=== PATIENT | male | born 1975 | race Caucasian/White ===

== ENCOUNTER 2016-09-27 23:44 | Emergency (ER) | payer OTHER ==
[~2016-09-27] VITALS: Ht 187.9 cm; Wt 90.7 kg
[~2016-09-27 23:44] MED LIST: ANAPROX DS550 MG PO; CYCLOBENZAPRINE10 MG PO; DAYPRO600 M1 PO; FLEXERIL5 MG PO; LISINOPRIL10 M1 PO; MOTRIN800 MG PO; Motrin,Rufen800 MG PO; NORCO 10-325 T1 EACH PO; PREDNISONE20 MG PO; TAMIFLU75 MG PO; TRAMADOL HCL50 MG PO
[2016-09-27] MEDS ORDERED: ZOLOFT25 MG PO (23:53)
[2016-09-27] MEDS ORDERED: ABILIFY5 MG PO (23:53)
[2016-09-27] MEDS ORDERED: XANAX0.25 MG PO (23:53)
[2016-09-28 00:26] LABS: BASO # 0.1 10*3/uL (0.0-0.1); BASO % 0.5 % (0.0-1.0); EOS # 0.4 10*3/uL (0.0-0.4); EOS % 3.6 % (1.0-4.0); HEMATOCRIT 43.4 % (42.0-52.0); HEMOGLOBIN 14.9 g/dl (14.0-18.0); LYMPH # 2.8 10*3/uL (1.3-4.4); LYMPH % 28.4 % (27.0-41.0); MEAN CELL VOLUME 93.9 fl (80.0-94.0); MEAN CORPUSCULAR HGB 32.3 pg (27.0-31.0); MEAN CORPUSCULAR HGB CONC 34.3 g/dl (33.0-37.0); MEAN PLATELET VOLUME 9.3 fl (9.6-12.3); MONO # 0.8 10*3/uL (0.1-1.0); MONO % 8.2 % (3.0-9.0); NEUT # 5.9 10*3/uL (2.3-7.9); NEUT % 59.1 % (47.0-73.0); PLATELET COUNT AUTOMATED 254 10*3/uL (130-400); RED BLOOD COUNT 4.62 10*6/uL (4.50-5.90); RED CELL DISTRI WIDTH 12.7 % (0-14.5); WHITE BLOOD COUNT 9.9 10*3/uL (4.8-10.8)
[2016-09-28 00:41] LABS: ALBUMIN 3.5 gm/dl (3.1-4.5); ALKALINE PHOSPHATASE 76 U/L (45-117); BILIRUBIN, TOTAL 0.5 mg/dl (0.2-1.0); BUN 20 mg/dl (7-24); CARBON DIOXIDE 30 mmol/L (21-32); CHLORIDE 105 mmol/L (98-107); EST GLOM FILT AFRICAN AMERICAN > 60 ml/min; GLUCOSE 97 mg/dL (65-99); POTASSIUM 3.6 mmol/L (3.5-5.1); SGOT/AST 23 IU/L (3-35); SGPT/ALT 74 U/L (12-78); SODIUM 142 mmol/L (136-145); TOTAL PROTEIN 6.6 gm/dL (6.4-8.2)
[2016-09-28] MEDS ORDERED: LOMOTIL 0.025 M1 TA1 PO (01:43)
== END 2016-09-28 02:20 | disposition home or self-care (01) ==
LOC: ED 23:44
PROVIDERS: Physician Assistant
DX: A08.4 Viral intestinal infection, unspecified (principal); Z88.0 Allergy status to penicillin; Z88.1 Allergy status to other antibiotic agents; Z79.899 Other long term (current) drug therapy

== ENCOUNTER 2016-12-26 19:47 | Emergency (ER) | payer OTHER ==
[~2016-12-26] VITALS: Ht 187.9 cm; Wt 90.7 kg
[~2016-12-26 19:47] MED LIST changes: +ABILIFY5 MG PO; +LOMOTIL 0.025 M1 TA1 PO; +XANAX0.25 MG PO; +ZOLOFT25 MG PO
[2016-12-26] MEDS ORDERED: PROZAC40 M1 PO (20:04)
[2016-12-26] MEDS ORDERED: NAPROSYN500 MG PO (20:11)
[2016-12-26] MEDS ORDERED: 'PARAFON FORTE500 M1 PO (20:11)
== END 2016-12-26 20:12 | disposition home or self-care (01) ==
LOC: ED 19:47
DX: M54.5 Low back pain (principal); R03.0 Elevated blood-pressure reading, without diagnosis of hypertension; Z88.0 Allergy status to penicillin; Z88.1 Allergy status to other antibiotic agents; Z79.899 Other long term (current) drug therapy

== ENCOUNTER 2017-01-22 13:41 | Emergency (ER) | payer OTHER ==
[~2017-01-22] VITALS: Ht 187.9 cm; Wt 90.7 kg
[~2017-01-22 13:41] MED LIST changes: +'PARAFON FORTE500 M1 PO; +NAPROSYN500 MG PO; +PROZAC40 M1 PO
[2017-01-22] MEDS ORDERED: CEPHALEXIN500 M1 PO (15:33)
== END 2017-01-22 15:37 | disposition home or self-care (01) ==
LOC: ED 13:41
DX: J06.9 Acute upper respiratory infection, unspecified (principal); B97.89 Other viral agents as the cause of diseases classified elsewhere; H65.92 Unspecified nonsuppurative otitis media, left ear; Z88.0 Allergy status to penicillin; Z88.1 Allergy status to other antibiotic agents; Z79.899 Other long term (current) drug therapy

== ENCOUNTER 2017-03-19 12:32 | Emergency (ER) | payer OTHER ==
[~2017-03-19] VITALS: Ht 187.9 cm; Wt 90.7 kg
[~2017-03-19 12:32] MED LIST changes: +CEPHALEXIN500 M1 PO
[2017-03-19 13:13] LABS: BASO % 0.5 % (0.0-1.0); EOS # 0.3 10*3/uL (0.0-0.4); EOS % 3.2 % (1.0-4.0); HEMATOCRIT 43.8 % (42.0-52.0); HEMOGLOBIN 15.1 g/dl (14.0-18.0); LYMPH # 2.2 10*3/uL (1.3-4.4); LYMPH % 26.7 % (27.0-41.0); MEAN CELL VOLUME 91.4 fl (80.0-94.0); MEAN CORPUSCULAR HGB 31.5 pg (27.0-31.0); MEAN CORPUSCULAR HGB CONC 34.5 g/dl (33.0-37.0); MEAN PLATELET VOLUME 9.8 fl (9.6-12.3); MONO # 0.4 10*3/uL (0.1-1.0); MONO % 4.9 % (3.0-9.0); NEUT # 5.3 10*3/uL (2.3-7.9); NEUT % 64.5 % (47.0-73.0); PLATELET COUNT AUTOMATED 256 10*3/uL (130-400); RED BLOOD COUNT 4.79 10*6/uL (4.50-5.90); RED CELL DISTRI WIDTH 13.2 % (0-14.5); WHITE BLOOD COUNT 8.2 10*3/uL (4.8-10.8)
[2017-03-19 13:30] LABS: ALBUMIN 3.6 gm/dl (3.1-4.5); ALKALINE PHOSPHATASE 77 U/L (45-117); BUN 14 mg/dl (7-24); CHLORIDE 106 mmol/L (98-107); LIPASE 143 U/L (73-393); POTASSIUM 3.6 mmol/L (3.5-5.1); SGOT/AST 17 IU/L (3-35); SGPT/ALT 26 U/L (12-78); SODIUM 143 mmol/L (136-145); TOTAL PROTEIN 6.7 gm/dL (6.4-8.2)
[2017-03-19 13:51] LABS: BILIRUBIN NEGATIVE (NEGATIVE); BLOOD NEGATIVE (NEGATIVE); CLARITY SL CLOUDY (CLEAR); COLOR YELLOW (YELLOW); GLUCOSE NEGATIVE (NEGATIVE); KETONE NEGATIVE (NEGATIVE); LEUKO ESTERASE NEGATIVE (NEGATIVE); NITRITE NEGATIVE (NEGATIVE); PH 8.5 (5.0-9.0); UROBILINOGEN 0.2 E.U./dl (0.2-1.0)
[2017-03-19 14:12] LABS: BACTERIA 2+; EPITHELIAL CELLS 0-2; MUCOUS TRACE; RBC 0-2 rbc/hpf (0-2); WBC 0-2 wbc/hpf (0-5)
[2017-03-19] MEDS ORDERED: ZOFRAN ODT4 MG SL (14:15)
== END 2017-03-19 14:20 | disposition home or self-care (01) ==
LOC: ED 12:32
PROVIDERS: Nurse Practitioner Family
DX: B34.9 Viral infection, unspecified (principal); Z79.899 Other long term (current) drug therapy; Z88.0 Allergy status to penicillin; Z88.1 Allergy status to other antibiotic agents

== ENCOUNTER 2017-04-23 21:11 | Emergency (ER) | payer OTHER ==
[~2017-04-23] VITALS: Ht 187.9 cm; Wt 90.7 kg
[~2017-04-23 21:11] MED LIST changes: +ZOFRAN ODT4 MG SL
[2017-04-23] MEDS ORDERED: ANAPROX DS550 MG PO (22:21)
== END 2017-04-23 22:28 | disposition home or self-care (01) ==
LOC: ED 21:11
DX: M25.511 Pain in right shoulder (principal); Z79.899 Other long term (current) drug therapy; Z88.0 Allergy status to penicillin; Z88.1 Allergy status to other antibiotic agents; X50.0XXA Overexertion from strenuous movement or load, initial encounter; Y93.89 Activity, other specified; Y92.69 Other specified industrial and construction area as the place of occurrence of the external cause; Y99.9 Unspecified external cause status

== ENCOUNTER 2017-06-03 11:07 | Emergency (ER) | payer OTHER ==
[~2017-06-03] VITALS: Ht 187.9 cm; Wt 95.3 kg
== END 2017-06-03 11:13 | disposition home or self-care (01) ==
LOC: ED 11:07
DX: S46.211A Strain of muscle, fascia and tendon of other parts of biceps, right arm, initial encounter (principal); Z88.0 Allergy status to penicillin; Z88.1 Allergy status to other antibiotic agents; Z79.899 Other long term (current) drug therapy; X50.0XXA Overexertion from strenuous movement or load, initial encounter; Y93.89 Activity, other specified; Y92.89 Other specified places as the place of occurrence of the external cause; Y99.8 Other external cause status

== ENCOUNTER 2017-07-08 13:21 | Emergency (ER) | payer OTHER ==
[~2017-07-08] VITALS: Ht 187.9 cm; Wt 90.7 kg
[2017-07-08] MEDS ORDERED: DELTASONE20 M1 PO (15:30)
[2017-07-08] MEDS ORDERED: LEVAQUIN750 M1 PO (15:30)
== END 2017-07-08 15:41 | disposition home or self-care (01) ==
LOC: ED 13:21
DX: J32.9 Chronic sinusitis, unspecified (principal); Z79.899 Other long term (current) drug therapy; Z88.0 Allergy status to penicillin; Z88.1 Allergy status to other antibiotic agents

== ENCOUNTER 2017-10-10 14:53 | Emergency (ER) | payer OTHER ==
[~2017-10-10] VITALS: Ht 187.9 cm; Wt 93.0 kg
[~2017-10-10 14:53] MED LIST changes: +DELTASONE20 M1 PO; +LEVAQUIN750 M1 PO
[2017-10-10] MEDS ORDERED: MEDROL DOSEPAK4 MG PO (16:20)
[2017-10-10] MEDS ORDERED: NAPROSYN500 MG PO (16:20)
== END 2017-10-10 16:27 | disposition home or self-care (01) ==
LOC: ED 14:53
DX: M77.9 Enthesopathy, unspecified (principal); M25.521 Pain in right elbow; F17.200 Nicotine dependence, unspecified, uncomplicated; Z79.899 Other long term (current) drug therapy; Z88.0 Allergy status to penicillin; Z88.1 Allergy status to other antibiotic agents

== ENCOUNTER 2017-10-31 18:08 | Emergency (ER) | payer OTHER ==
[~2017-10-31] VITALS: Wt 93.0 kg
[~2017-10-31 18:08] MED LIST changes: +MEDROL DOSEPAK4 MG PO
[2017-10-31] MEDS ORDERED: LISINOPRIL10 M1 PO (18:12)
[2017-10-31 19:01] LABS: BASO # 0.1 10*3/uL (0.0-0.1); BASO % 0.4 % (0.0-1.0); EOS # 0.2 10*3/uL (0.0-0.4); EOS % 1.8 % (1.0-4.0); HEMATOCRIT 45.7 % (42.0-52.0); HEMOGLOBIN 15.5 g/dl (14.0-18.0); LYMPH % 26.9 % (27.0-41.0); MEAN CELL VOLUME 92.7 fl (80.0-94.0); MEAN CORPUSCULAR HGB 31.4 pg (27.0-31.0); MEAN CORPUSCULAR HGB CONC 33.9 g/dl (33.0-37.0); MEAN PLATELET VOLUME 9.4 fl (9.6-12.3); MONO # 0.6 10*3/uL (0.1-1.0); MONO % 5.6 % (3.0-9.0); NEUT # 7.3 10*3/uL (2.3-7.9); PLATELET COUNT AUTOMATED 270 10*3/uL (130-400); RED BLOOD COUNT 4.93 10*6/uL (4.50-5.90); WHITE BLOOD COUNT 11.2 10*3/uL (4.8-10.8)
[2017-10-31 19:17] LABS: ALBUMIN 3.7 gm/dl (3.1-4.5); ALKALINE PHOSPHATASE 66 U/L (45-117); BUN 18 mg/dl (7-24); CHLORIDE 108 mmol/L (98-107); CREATININE 1.29 mg/dL (0.70-1.30); POTASSIUM 3.8 mmol/L (3.5-5.1); SGOT/AST 13 IU/L (3-35); SODIUM 142 mmol/L (136-145); TOTAL PROTEIN 7.1 gm/dL (6.4-8.2)
[2017-10-31 19:19] LABS: SGPT/ALT 26 U/L (12-78)
[2017-10-31] MEDS ORDERED: ZYRTEC10 MG PO (19:22)
[2017-10-31] MEDS ORDERED: ZOFRAN ODT4 MG SL (19:22)
[2017-10-31] MEDS ORDERED: MEDROL DOSEPAK4 MG PO (19:22)
== END 2017-10-31 19:22 | disposition home or self-care (01) ==
LOC: ED 18:08
PROVIDERS: Nurse Practitioner Family
DX: B34.9 Viral infection, unspecified (principal); J02.8 Acute pharyngitis due to other specified organisms; Z79.899 Other long term (current) drug therapy; Z88.0 Allergy status to penicillin; Z88.1 Allergy status to other antibiotic agents

== ENCOUNTER 2018-11-13 22:14 | Emergency (ER) | payer BC ==
[~2018-11-13] VITALS: Ht 187.9 cm; Wt 97.5 kg
[~2018-11-13 22:14] MED LIST changes: +ZYRTEC10 MG PO
[2018-11-13] MEDS ORDERED: CYCLOBENZAPRINE10 MG PO (22:35)
[2018-11-13] MEDS ORDERED: IBU800 MG PO (22:35)
[2018-11-13] MEDS ORDERED: PREDNISONE50 MG PO (22:35)
== END 2018-11-13 22:48 | disposition home or self-care (01) ==
LOC: ED 22:14
DX: M54.5 Low back pain (principal); R20.0 Anesthesia of skin; Z88.0 Allergy status to penicillin; Z88.1 Allergy status to other antibiotic agents; Z79.899 Other long term (current) drug therapy

== ENCOUNTER 2019-04-13 11:56 | Emergency (ER) | payer BC ==
[~2019-04-13] VITALS: Ht 187.9 cm; Wt 95.3 kg
[~2019-04-13 11:56] MED LIST changes: +IBU800 MG PO; +PREDNISONE50 MG PO
== END 2019-04-13 13:22 | disposition left against medical advice (07) ==
LOC: ED 11:56
DX: R05 Cough (principal); R11.0 Nausea; R68.83 Chills (without fever); R52 Pain, unspecified; Z53.21 Procedure and treatment not carried out due to patient leaving prior to being seen by health care provider

== ENCOUNTER 2019-07-03 10:45 | Emergency (ER) | payer BC ==
[~2019-07-03] VITALS: Ht 187.9 cm; Wt 90.7 kg
[2019-07-03] MEDS ORDERED: PROVENTIL HFA6.7 GM INH (12:40)
[2019-07-03] MEDS ORDERED: TESSALON PERLE100 M1 PO (12:40)
== END 2019-07-03 12:44 | disposition home or self-care (01) ==
LOC: ED 10:45
DX: R50.9 Fever, unspecified (principal); R05 Cough; R52 Pain, unspecified; F17.220 Nicotine dependence, chewing tobacco, uncomplicated; Z88.0 Allergy status to penicillin; Z88.1 Allergy status to other antibiotic agents; Z79.899 Other long term (current) drug therapy

== ENCOUNTER 2020-03-13 19:55 | Emergency (ER) | payer OTHER ==
[~2020-03-13] VITALS: Wt 102.1 kg
[~2020-03-13 19:55] MED LIST changes: +PROVENTIL HFA6.7 GM INH; +TESSALON PERLE100 M1 PO
== END 2020-03-13 23:03 | disposition home or self-care (01) ==
LOC: ED 19:55
DX: S79.822A Other specified injuries of left thigh, initial encounter (principal); Z88.0 Allergy status to penicillin; Z88.8 Allergy status to other drugs, medicaments and biological substances; Z79.899 Other long term (current) drug therapy; X58.XXXA Exposure to other specified factors, initial encounter; Y93.89 Activity, other specified; Y92.89 Other specified places as the place of occurrence of the external cause; Y99.8 Other external cause status

== ENCOUNTER → 2020-03-18 | Outpatient (CLI) | payer OTHER | END | disposition home or self-care (01) | LOC: COVID19 11:10 | PROVIDERS: ATTEND Family Medicine | DX: Z20.828 Contact with and (suspected) exposure to other viral communicable diseases (principal) ==

== ENCOUNTER → 2020-03-21 | Outpatient (CLI) | payer OTHER ==
[2020-03-21 15:35] LABS: BASO % 0.3 % (0.0-1.0); EOS # 0.2 10*3/uL (0.0-0.4); EOS % 2.5 % (1.0-4.0); HEMATOCRIT 44.6 % (42.0-52.0); LYMPH # 2.5 10*3/uL (1.3-4.4); LYMPH % 25.6 % (27.0-41.0); MEAN CELL VOLUME 92.5 fl (80.0-94.0); MEAN CORPUSCULAR HGB 31.3 pg (27.0-31.0); MEAN CORPUSCULAR HGB CONC 33.9 g/dl (33.0-37.0); MEAN PLATELET VOLUME 9.6 fl (9.6-12.3); MONO # 0.5 10*3/uL (0.1-1.0); MONO % 5.5 % (3.0-9.0); NEUT # 6.3 10*3/uL (2.3-7.9); NEUT % 65.9 % (47.0-73.0); PLATELET COUNT AUTOMATED 253 10*3/uL (130-400); RED BLOOD COUNT 4.82 10*6/uL (4.50-5.90); RED CELL DISTRI WIDTH 12.2 % (0-14.5); WHITE BLOOD COUNT 9.6 10*3/uL (4.8-10.8)
[2020-03-21 16:13] LABS: ALBUMIN 3.7 gm/dl (3.1-4.5); ALKALINE PHOSPHATASE 92 U/L (45-117); BUN 15 mg/dl (7-24); CHLORIDE 108 mmol/L (98-107); CHOLESTEROL 148 mg/dL (<200); CPK 94 U/L (39-308); CREATININE 1.21 mg/dL (0.70-1.30); HDL CHOLESTEROL 41 mg/dl (40-60); LDL CHOLESTEROL 72 mg/dL (9-159); POTASSIUM 3.7 mmol/L (3.5-5.1); SGOT/AST 25 IU/L (3-35); SGPT/ALT 71 U/L (12-78); SODIUM 142 mmol/L (136-145); TOTAL PROTEIN 7.2 gm/dL (6.4-8.2); TRIGLYCERIDES 174 mg/dl (<150); VLDL CHOLESTEROL 35 mg/dL (6-40)
== END | disposition home or self-care (01) ==
LOC: LAB 15:20
PROVIDERS: ATTEND Family Medicine
DX: I10 Essential (primary) hypertension (principal)

== ENCOUNTER → 2020-05-20 | Outpatient (CLI) | payer OTHER | END | disposition home or self-care (01) | LOC: COVID19 08:38 | PROVIDERS: ATTEND Nurse Practitioner Family | DX: Z20.828 Contact with and (suspected) exposure to other viral communicable diseases (principal) ==

== ENCOUNTER → 2020-07-07 | Outpatient (CLI) | payer OTHER ==
[2020-07-07 16:29] LABS: ALKALINE PHOSPHATASE 97 U/L (45-117); BUN 20 mg/dl (7-24); CHLORIDE 105 mmol/L (98-107); CHOLESTEROL 231 mg/dL (<200); CPK 189 U/L (39-308); CREATININE 1.21 mg/dL (0.70-1.30); HDL CHOLESTEROL 45 mg/dl (40-60); LDL CHOLESTEROL 155 mg/dL (9-159); POTASSIUM 3.8 mmol/L (3.5-5.1); SGOT/AST 24 IU/L (3-35); SGPT/ALT 91 U/L (12-78); SODIUM 141 mmol/L (136-145); TOTAL PROTEIN 7.6 gm/dL (6.4-8.2); TRIGLYCERIDES 153 mg/dl (<150); VLDL CHOLESTEROL 31 mg/dL (6-40)
== END | disposition home or self-care (01) ==
LOC: LAB 15:33
PROVIDERS: ATTEND Family Medicine
DX: E78.00 Pure hypercholesterolemia, unspecified (principal)

== ENCOUNTER → 2020-10-08 | Outpatient (CLI) | payer OTHER ==
[2020-10-08 09:22] LABS: ALBUMIN 3.8 gm/dl (3.1-4.5); ALKALINE PHOSPHATASE 77 U/L (45-117); BUN 20 mg/dl (7-24); CHLORIDE 108 mmol/L (98-107); CHOLESTEROL 139 mg/dL (<200); CPK 339 U/L (39-308); CREATININE 1.28 mg/dL (0.70-1.30); HDL CHOLESTEROL 41 mg/dl (40-60); LDL CHOLESTEROL 83 mg/dL (9-159); POTASSIUM 3.8 mmol/L (3.5-5.1); SGOT/AST 20 IU/L (3-35); SGPT/ALT 41 U/L (12-78); SODIUM 140 mmol/L (136-145); TOTAL PROTEIN 7.4 gm/dL (6.4-8.2); TRIGLYCERIDES 76 mg/dl (<150); VLDL CHOLESTEROL 15 mg/dL (6-40)
== END | disposition home or self-care (01) ==
LOC: LAB 08:22
PROVIDERS: ATTEND Family Medicine
DX: E78.00 Pure hypercholesterolemia, unspecified (principal)

== ENCOUNTER → 2020-11-15 | Outpatient (CLI) | payer OTHER | END | disposition home or self-care (01) | LOC: RAD 15:59 | PROVIDERS: ATTEND Family Medicine | DX: M51.36 Other intervertebral disc degeneration, lumbar region (principal); M51.37 Other intervertebral disc degeneration, lumbosacral region; M41.86 Other forms of scoliosis, lumbar region ==

== ENCOUNTER → 2021-03-10 | Outpatient (CLI) | payer OTHER | END | disposition home or self-care (01) | LOC: RAD 14:49 | PROVIDERS: ATTEND Family Medicine | DX: R06.02 Shortness of breath (principal) ==

== ENCOUNTER → 2022-01-23 | Outpatient (CLI) | payer OTHER ==
[2022-01-23 16:00] LABS: HEMATOCRIT 43.2 % (42.0-52.0); MEAN CELL VOLUME 90.4 fl (80.0-94.0); MEAN CORPUSCULAR HGB 31.6 pg (27.0-31.0); MEAN PLATELET VOLUME 9.3 fl (9.6-12.3); RED BLOOD COUNT 4.78 10*6/uL (4.50-5.90); RED CELL DISTRI WIDTH 12.3 % (0-14.5); WHITE BLOOD COUNT 8.7 10*3/uL (4.8-10.8)
[2022-01-23 16:25] LABS: ALKALINE PHOSPHATASE 67 U/L (45-117); BUN 18 mg/dl (7-24); CHLORIDE 109 mmol/L (98-107); CHOLESTEROL 221 mg/dL (<200); CREATININE 1.31 mg/dL (0.70-1.30); LDL CHOLESTEROL 134 mg/dL (9-159); POTASSIUM 3.9 mmol/L (3.5-5.1); SGOT/AST 17 IU/L (3-35); SGPT/ALT 27 U/L (12-78); SODIUM 143 mmol/L (136-145); TOTAL PROTEIN 6.9 gm/dL (6.4-8.2); TRIGLYCERIDES 257 mg/dl (<150)
== END | disposition home or self-care (01) ==
LOC: LAB 15:39
PROVIDERS: ATTEND Family Medicine
DX: Z00.00 Encounter for general adult medical examination without abnormal findings (principal); E78.5 Hyperlipidemia, unspecified; I10 Essential (primary) hypertension

== ENCOUNTER 2022-03-26 20:49 | Emergency (ER) | payer OTHER ==
[~2022-03-26] VITALS: Ht 182.8 cm; Wt 99.8 kg
[2022-03-26 21:23] LABS: BASO % 0.5 % (0.0-1.0); EOS # 0.3 10*3/uL (0.0-0.4); EOS % 3.9 % (1.0-4.0); HEMATOCRIT 42.5 % (42.0-52.0); LYMPH # 2.7 10*3/uL (1.3-4.4); LYMPH % 32.4 % (27.0-41.0); MEAN CELL VOLUME 92.4 fl (80.0-94.0); MEAN CORPUSCULAR HGB 31.7 pg (27.0-31.0); MEAN CORPUSCULAR HGB CONC 34.4 g/dl (33.0-37.0); MEAN PLATELET VOLUME 9.4 fl (9.6-12.3); MONO # 0.6 10*3/uL (0.1-1.0); MONO % 6.7 % (3.0-9.0); NEUT # 4.6 10*3/uL (2.3-7.9); NEUT % 56.3 % (47.0-73.0); PLATELET COUNT AUTOMATED 248 10*3/uL (130-400); RED CELL DISTRI WIDTH 12.5 % (0-14.5); WHITE BLOOD COUNT 8.2 10*3/uL (4.8-10.8)
[2022-03-26 21:38] LABS: ALKALINE PHOSPHATASE 80 U/L (45-117); BUN 18 mg/dl (7-24); CHLORIDE 111 mmol/L (98-107); CREATININE 1.28 mg/dL (0.70-1.30); POTASSIUM 3.5 mmol/L (3.5-5.1); SGOT/AST 11 IU/L (3-35); SGPT/ALT 32 U/L (12-78); SODIUM 143 mmol/L (136-145); TOTAL PROTEIN 6.6 gm/dL (6.4-8.2)
[2022-03-26] MEDS ORDERED: PREDNISONE20 M1 PO (22:32)
== END 2022-03-26 22:43 | disposition home or self-care (01) ==
LOC: ED 20:49
PROVIDERS: Internal Medicine
DX: B34.9 Viral infection, unspecified (principal); Z20.822 Contact with and (suspected) exposure to COVID-19; Z88.0 Allergy status to penicillin; Z88.1 Allergy status to other antibiotic agents; Z79.899 Other long term (current) drug therapy

== ENCOUNTER 2022-05-28 17:51 | Emergency (ER) | payer OTHER ==
[~2022-05-28] VITALS: Ht 187.9 cm; Wt 99.8 kg
[~2022-05-28 17:51] MED LIST changes: +PREDNISONE20 M1 PO
== END 2022-05-28 21:58 | disposition left against medical advice (07) ==
LOC: ED 17:51
DX: R50.9 Fever, unspecified (principal); R05.9 Cough, unspecified; Z53.21 Procedure and treatment not carried out due to patient leaving prior to being seen by health care provider

== ENCOUNTER 2023-05-29 20:52 | Emergency (ER) | payer OTHER ==
[~2023-05-29] VITALS: Ht 187.9 cm; Wt 102.1 kg
[2023-05-29 23:42] LABS: BASO % 0.4 % (0.0-1.0); EOS # 0.4 10*3/uL (0.0-0.4); EOS % 4.3 % (1.0-4.0); HEMATOCRIT 43.8 % (42.0-52.0); LYMPH # 2.8 10*3/uL (1.3-4.4); LYMPH % 29.9 % (27.0-41.0); MEAN CELL VOLUME 92.6 fl (80.0-94.0); MEAN CORPUSCULAR HGB 31.9 pg (27.0-31.0); MEAN CORPUSCULAR HGB CONC 34.5 g/dl (33.0-37.0); MEAN PLATELET VOLUME 9.1 fl (9.6-12.3); MONO # 0.7 10*3/uL (0.1-1.0); NEUT # 5.5 10*3/uL (2.3-7.9); NEUT % 58.1 % (47.0-73.0); PLATELET COUNT AUTOMATED 248 10*3/uL (130-400); RED BLOOD COUNT 4.73 10*6/uL (4.50-5.90); RED CELL DISTRI WIDTH 12.6 % (0-14.5); WHITE BLOOD COUNT 9.4 10*3/uL (4.8-10.8)
[2023-05-29 23:59] LABS: ALKALINE PHOSPHATASE 82 U/L (46-116); BUN 15 mg/dl (9-23); CHLORIDE 108 mmol/L (98-107); POTASSIUM 3.9 mmol/L (3.4-5.1); SGPT/ALT 56 U/L (5-49); TOTAL PROTEIN 6.3 gm/dL (6.0-8.0)
== END 2023-05-30 01:00 | disposition home or self-care (01) ==
LOC: ED 20:52
PROVIDERS: Family Medicine
DX: R51.9 Headache, unspecified (principal); R05.9 Cough, unspecified; B97.4 Respiratory syncytial virus as the cause of diseases classified elsewhere; M79.10 Myalgia, unspecified site; I10 Essential (primary) hypertension; F41.9 Anxiety disorder, unspecified; Z88.0 Allergy status to penicillin; Z88.1 Allergy status to other antibiotic agents; Z20.822 Contact with and (suspected) exposure to COVID-19

== ENCOUNTER 2024-08-11 20:07 | Emergency (ER) | payer BC ==
[~2024-08-11] VITALS: Ht 187.9 cm; Wt 104.3 kg
[2024-08-11] MEDS ORDERED: ATORVASTATIN CA10 M1 PO (20:37)
== END 2024-08-11 22:02 | disposition home or self-care (01) ==
LOC: ED 20:07
DX: B34.9 Viral infection, unspecified (principal); Z20.822 Contact with and (suspected) exposure to COVID-19; Z88.0 Allergy status to penicillin; Z88.1 Allergy status to other antibiotic agents; Z79.899 Other long term (current) drug therapy

== ENCOUNTER 2024-09-21 15:59 | Inpatient (IN) | payer BC ==
[~2024-09-21] VITALS: Ht 187.9 cm; Wt 102.6 kg
[2024-09-21] VITALS (9 sets, daily range): BP systolic 102–124; BP diastolic 60–87
[~2024-09-21 15:59] MED LIST changes: +ATORVASTATIN CA10 M1 PO
[2024-09-21] MEDS ORDERED: Ketorolac Tromethamine 15 MG/ML VIAL IV ONE (16:25)
[2024-09-21] MEDS ORDERED: SODIUM CHLORIDE 0.9% 1,000 ML IV ONE (16:25)
[2024-09-21 16:38] LABS: BASO % 0.3 % (0.0-1.0); EOS # 0.3 10*3/uL (0.0-0.4); EOS % 2.5 % (1.0-4.0); MEAN CORPUSCULAR HGB 31.7 pg (27.0-31.0); MEAN CORPUSCULAR HGB CONC 34.4 g/dl (33.0-37.0); MEAN PLATELET VOLUME 9.2 fl (9.6-12.3); MONO # 0.7 10*3/uL (0.1-1.0); MONO % 5.9 % (3.0-9.0); NEUT # 7.5 10*3/uL (2.3-7.9); NEUT % 61.8 % (47.0-73.0); PLATELET COUNT AUTOMATED 281 10*3/uL (130-400); RED BLOOD COUNT 4.89 10*6/uL (4.50-5.90); RED CELL DISTRI WIDTH 12.3 % (0-14.5); WHITE BLOOD COUNT 12.2 10*3/uL (4.8-10.8)
[2024-09-21 17:02] LABS: BUN 15 mg/dl (9-23); CHLORIDE 106 mmol/L (98-107); POTASSIUM 4.4 mmol/L (3.4-5.1)
[2024-09-21 17:24] LABS: ACT PARTIAL THROMBO TIME 27.6 SECONDS (20.0-32.1)
[2024-09-21] MEDS ORDERED: SODIUM CHLORIDE 0.9% 100 ML BAG IV ONE (17:25)
[2024-09-21] MEDS ORDERED: IOHEXOL 350 MG/ML 100 ML VIAL IV ONE (17:25)
[2024-09-21] MEDS ORDERED: FUROSEMIDE 40 MG/4 ML VIAL IV ONE (18:45)
[2024-09-21] MEDS ORDERED: Metoprolol Tartrate 5 MG/5 ML VIAL IV ONE (20:20)
[2024-09-21] MEDS ORDERED: HEPARIN SODIUM 250 ML IV ONE (20:35)
[2024-09-21] MEDS ORDERED: BISACODYL 10 MG SUPP R PRN (21:20)
[2024-09-21] MEDS ORDERED: Magnesium Hydroxide 30 ML UDC PO PRN (21:20)
[2024-09-21] MEDS ORDERED: BISACODYL 5 MG TAB PO PRN (21:20)
[2024-09-21] MEDS ORDERED: Ondansetron Hydrochloride 4 MG/2 ML VIAL IV PRN (21:20)
[2024-09-21] MEDS ORDERED: ACETAMINOPHEN 650 MG SUPP R PRN (21:20)
[2024-09-21] MEDS ORDERED: ACETAMINOPHEN 325 MG TAB PO PRN (21:20)
[2024-09-22] VITALS: BP 109/65
[2024-09-22] MEDS ORDERED: Pantoprazole Sodium 40 MG TAB PO SCH (06:00)
[2024-09-22 06:42] LABS: BASO % 0.4 % (0.0-1.0); EOS # 0.2 10*3/uL (0.0-0.4); EOS % 1.6 % (1.0-4.0); HEMATOCRIT 48.4 % (42.0-52.0); MEAN CELL VOLUME 90.6 fl (80.0-94.0); MEAN CORPUSCULAR HGB 31.5 pg (27.0-31.0); MEAN CORPUSCULAR HGB CONC 34.7 g/dl (33.0-37.0); MEAN PLATELET VOLUME 9.4 fl (9.6-12.3); MONO # 0.7 10*3/uL (0.1-1.0); MONO % 5.8 % (3.0-9.0); NEUT # 7.5 10*3/uL (2.3-7.9); NEUT % 67.1 % (47.0-73.0); PLATELET COUNT AUTOMATED 276 10*3/uL (130-400); RED BLOOD COUNT 5.34 10*6/uL (4.50-5.90); RED CELL DISTRI WIDTH 12.6 % (0-14.5); WHITE BLOOD COUNT 11.2 10*3/uL (4.8-10.8)
[2024-09-22 06:56] LABS: ALKALINE PHOSPHATASE 72 U/L (46-116); BUN 16 mg/dl (9-23); CHLORIDE 103 mmol/L (98-107); CHOLESTEROL 161 mg/dL (<200); FREE T4 1.24 ng/dl (0.89-1.76); LDL CHOLESTEROL 95 mg/dL (9-159); POTASSIUM 4.3 mmol/L (3.4-5.1); SGPT/ALT 33 U/L (5-49); TOTAL PROTEIN 6.6 gm/dL (6.0-8.0); TRIGLYCERIDES 157 mg/dl (<150)
[2024-09-22 07:24] LABS: VITAMIN D, 25-HYDROXY 33.1 ng/mL (30-100)
[2024-09-22 08:00] VITALS: BP 120/80
[2024-09-22 08:06] LABS: BILIRUBIN Negative (Negative); BLOOD Negative (Negative); CLARITY Clear (Clear); COLOR Yellow (Yellow); GLUCOSE Negative (Negative); KETONE Trace (Negative); LEUKO ESTERASE Negative (Negative); NITRITE Negative (Negative); PH 5.5 (4.5-8.0); SPECIFIC GRAVITY >= 1.030 (1.001-1.030); UROBILINOGEN 0.2 E.U./dl (0.0-1.0)
[2024-09-22 08:47] LABS: MUCOUS TRACE; RBC 0-2 rbc/hpf (0-2); WBC 0-2 wbc/hpf (0-5)
[2024-09-22] MEDS ORDERED: LISINOPRIL 10 MG TAB PO SCH (10:00)
[2024-09-22] MEDS ORDERED: Enoxaparin Sodium 100 MG/ML SYR SC SCH (10:00)
[2024-09-22] MEDS ORDERED: METOPROLOL SUCCINATE XR 25 MG TAB PO SCH (10:00)
[2024-09-22] MEDS ORDERED: Enoxaparin Sodium 40 MG/0.4 ML SYR SC SCH (10:00)
[2024-09-22 11:33] VITALS: BP 97/55
[2024-09-22 16:00] VITALS: BP 95/71
[2024-09-22] MEDS ORDERED: METOPROLOL SUCCINATE XR 25 MG TAB PO ONE (17:30)
[2024-09-22] MEDS ORDERED: ATORVASTATIN CALCIUM 10 MG TAB PO SCH (18:00)
[2024-09-22] MEDS ORDERED: RIVAROXABAN 20 MG TAB PO SCH (18:00)
[2024-09-22 20:00] VITALS: BP 95/80
[2024-09-23] VITALS: BP 100/90
[2024-09-23 05:14] LABS: BUN 15 mg/dl (9-23); CHLORIDE 105 mmol/L (98-107); POTASSIUM 4.2 mmol/L (3.4-5.1)
[2024-09-23 06:21] LABS: BASO % 0.3 % (0.0-1.0); EOS # 0.2 10*3/uL (0.0-0.4); EOS % 1.4 % (1.0-4.0); HEMATOCRIT 48.8 % (42.0-52.0); MEAN CELL VOLUME 93.1 fl (80.0-94.0); MEAN CORPUSCULAR HGB 31.9 pg (27.0-31.0); MEAN CORPUSCULAR HGB CONC 34.2 g/dl (33.0-37.0); MONO # 0.9 10*3/uL (0.1-1.0); MONO % 6.2 % (3.0-9.0); NEUT # 11.3 10*3/uL (2.3-7.9); NEUT % 77.3 % (47.0-73.0); PLATELET COUNT AUTOMATED 284 10*3/uL (130-400); RED BLOOD COUNT 5.24 10*6/uL (4.50-5.90); RED CELL DISTRI WIDTH 12.2 % (0-14.5); WHITE BLOOD COUNT 14.6 10*3/uL (4.8-10.8)
[2024-09-23 08:00] VITALS: BP 124/86
[2024-09-23] MEDS ORDERED: METOPROLOL SUCCINATE XR 50 MG TAB PO SCH (10:00)
[2024-09-23] MEDS ORDERED: dilTIAZem CD 120 MG CAP PO SCH (11:00)
[2024-09-23 12:00] VITALS: BP 110/66
[2024-09-23 16:00] VITALS: BP 101/76
[2024-09-23 20:00] VITALS: BP 106/68
== END 2024-09-23 23:35 | disposition short-term general hospital (02) | DRG 309 ==
LOC: ED 15:59 → EDHOLD 21:08 → 4E 21:08
PROVIDERS: Emergency Medicine; Student in an Organized Health Care Education/Training Program; ADMIT Internal Medicine; ATTEND Internal Medicine
DX: I48.91 Unspecified atrial fibrillation (principal); R65.10 Systemic inflammatory response syndrome (SIRS) of non-infectious origin without acute organ dysfunction; H66.92 Otitis media, unspecified, left ear; F17.220 Nicotine dependence, chewing tobacco, uncomplicated; I10 Essential (primary) hypertension; Z20.822 Contact with and (suspected) exposure to COVID-19; E78.2 Mixed hyperlipidemia; Z88.0 Allergy status to penicillin; Z82.49 Family history of ischemic heart disease and other diseases of the circulatory system